=== PATIENT | female | born 1995 | race American Indian/Alaskan Native ===

== ENCOUNTER 2019-06-10 04:00 | Outpatient (CLI) | payer SELFPAY ==
[2019-06-10 05:54] VITALS: BP 114/66
== END 2019-06-10 05:45 | disposition home or self-care (01) ==
LOC: TRG 04:00
PROVIDERS: ATTEND Obstetrics & Gynecology
DX: O47.1 False labor at or after 37 completed weeks of gestation (principal); Z3A.39 39 weeks gestation of pregnancy
CPT/HCPCS: 59025; Q0177

== ENCOUNTER 2021-01-06 21:51 | Outpatient (CLI) | payer MEDICAID, OTHER ==
[2021-01-06 23:58] VITALS: BP 123/73
[2021-01-07] MEDS ORDERED: LACTATED RINGERS 1,000 ML IV ONE (00:10)
[2021-01-07 00:29] LABS: Bilirubin,Urine NEG (Negative); Blood,Urine NEG (Negative); Color,Urine Yellow (Yellow); Mucus,Urine 3+ /HPF
[2021-01-07] MEDS ORDERED: ceFAZolin 1 GM VIAL IM ONE (00:53)
[2021-01-07] MEDS ORDERED: LIDOCAINE MPF (2%) 20 MG/1 ML VIAL 5 ML ONE (01:03)
[2021-01-07] MEDS ORDERED: LIDOCAINE MPF (2%) 20 MG/1 ML VIAL 5 ML INFILTRATI ONE (01:15)
== END 2021-01-07 01:10 | disposition home or self-care (01) ==
LOC: EDSTATUS 23:31 → TRG 23:50 → APU 23:51 → TRG 01-07 01:10
PROVIDERS: ATTEND Obstetrics & Gynecology
DX: O26.893 Other specified pregnancy related conditions, third trimester (principal); R10.9 Unspecified abdominal pain; Z87.891 Personal history of nicotine dependence; Z3A.34 34 weeks gestation of pregnancy
CPT/HCPCS: 59025; 81001; 96372; J0690

== ENCOUNTER 2021-01-31 14:30 | Outpatient (CLI) | payer MEDICAID, OTHER ==
[2021-01-31] MEDS ORDERED: LACTATED RINGERS 1,000 ML IV ONE (15:03)
[2021-01-31 15:48] VITALS: BP 115/74
[2021-01-31 20:33] LABS: Bilirubin,Urine Negative (Negative); Color,Urine Yellow (Yellow)
[2021-01-31 20:34] LABS: Blood,Urine Negative (Negative); Urobilinogen,Urine < 2.0 mg/dL (<2.0)
== END 2021-01-31 17:36 | disposition home or self-care (01) ==
LOC: TRG 14:30 → APU 14:32 → TRG 17:36
PROVIDERS: ATTEND Obstetrics & Gynecology
DX: Z34.93 Encounter for supervision of normal pregnancy, unspecified, third trimester (principal); Z3A.37 37 weeks gestation of pregnancy
CPT/HCPCS: 59025; 81001

== ENCOUNTER 2021-02-12 17:02 | Inpatient (IN) | payer MEDICAID ==
[2021-02-12] MEDS ORDERED: LACTATED RINGERS 1,000 ML IV SCH ×2 (18:15→19:15)
[2021-02-12 18:54] LABS: Basophils % (Auto) 0.3 % (0.0-1.8); Eosinophils % (Auto) 0.2 % (0.0-4.3); Hematocrit 29.6 % (30.3-42.9); Hemoglobin 9.9 gm/dl (10.1-14.3); Mean Corpuscular HGB Conc 33 % (30-34); Mean Corpuscular Volume 81 fl (79-97); Monocytes # (Auto) 0.9 K/mm3 (0.0-0.8); Monocytes % (Auto) 12.2 % (0.0-7.3); Platelet Count 251 K/mm3 (140-440); Red Blood Count 3.66 M/mm3 (3.65-5.03); Red Cell Distribution Width 14.6 % (13.2-15.2)
[2021-02-12] MEDS ORDERED: fentaNYL 100 MCG/2 ML INJ IV ONE (19:00)
[2021-02-12] MEDS ORDERED: LOPERAMIDE 2 MG CAP PO PRN (19:06)
[2021-02-12] MEDS ORDERED: NALOXONE 0.4 MG/1 ML INJ IV PRN (19:06)
[2021-02-12] MEDS ORDERED: ONDANSETRON 4 MG/2 ML INJ IV PRN ×2 (19:06→19:20)
[2021-02-12] MEDS ORDERED: ePHEDrine SULFATE 50 MG/1 ML INJ IV PRN ×2 (19:06→19:20)
[2021-02-12] MEDS ORDERED: CARBOPROST TROMETHAMINE 250 MCG/1 ML INJ IM PRN (19:06)
[2021-02-12] MEDS ORDERED: TERBUTALINE 1 MG/1 ML INJ SUB-Q PRN (19:06)
[2021-02-12] MEDS ORDERED: OXYTOCIN 10 UNIT/1 ML INJ IM PRN (19:06)
[2021-02-12] MEDS ORDERED: BUTORPHANOL 2 MG/1 ML INJ IV PRN (19:06)
[2021-02-12] MEDS ORDERED: ACETAMINOPHEN 325 MG TAB PO PRN (19:06)
[2021-02-12] MEDS ORDERED: LIDOCAINE (2%) 20 MG/1 ML VIAL 20 ML MDV INFILTRATI ONE (19:06)
[2021-02-12] MEDS ORDERED: miSOPROStol 200 MCG TAB PR PRN (19:06)
[2021-02-12] MEDS ORDERED: METHYLERGONOVINE MALEATE 0.2 MG/ML VIAL IM PRN (19:06)
[2021-02-12] MEDS ORDERED: fentaNYL 100 MCG/2 ML INJ IV PRN (19:06)
[2021-02-12] MEDS ORDERED: MINERAL OIL 30 ML ORAL LIQD PO PRN (19:06)
[2021-02-12] MEDS ORDERED: NalbUPHINE 10 MG/1 ML INJ IV PRN (19:20)
[2021-02-12] MEDS ORDERED: LACTATED RINGERS 250 ML IV SOLN IV ONE (19:20)
[2021-02-12] MEDS ORDERED: diphenhydrAMINE 50 MG/ML VIAL IV PRN (19:20)
[2021-02-12] MEDS ORDERED: NALOXONE 2 MG/2 ML INJ IV PRN (19:20)
[2021-02-12 19:38] LABS: Uric Acid 3.8 mg/dL (3.5-7.6)
--- NOTE | 2021-02-12 19:44 | History and Physical Report ---
History of Present Illness Date of examination: 02/12/21 Chief complaint: contractions History of present illness: Pt is a 25 year old female MARRY 02/15/21 at 39w4d who presents with re gular painful contractions, advanced cervical dilation of 6 cm, and rupture of membranes. She has had limited care at [facility] since 35 weeks (4 visits) complicated by third trimester entry to care, genital herpes and h/o PIH in prior . She is GBS negative. 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 Social history: no significant social history - Obstetrical History Expected Date of Delivery: 02/15/21 Actual Gestation: 39 Week(s) 4 Day(s) : 3 Para: 2 Hx # Term Pregnancies: 2 Number of Pregnancies: 0 Spontaneous Abortions: 0 Induced : 0 Number of Living Children: 2 Medications and Allergies Allergies Allergy/AdvReac Type Severity Reaction Status Date / Time No Known Allergies Allergy Verified 12/13/13 04:17 Home Medications Medication Instructions Recorded Confirmed Last Taken Type No Known Home Medications [No 02/12/21 02/12/21 Unknown History Reported Home Medications] Active Meds: Active Medications Acetaminophen (Acetaminophen 325 Mg Tab) 650 mg PO Q4H PRN PRN Reason: Pain, Mild (1-3) Butorphanol Tartrate (Butorphanol 2 Mg/1 Ml Inj) 1 mg IV Q2H PRN PRN Reason: Pain, Moderate(4-6) LABOR PAIN Carboprost Tromethamine (Carboprost Tromethamine 250 Mcg/1 Ml Inj) 250 mcg IM ONCE PRN PRN Reason: Uterine Bleeding Diphenhydramine HCl (Diphenhydramine 50 Mg/Ml Vial) 12.5 mg IV Q2H PRN PRN Reason: Itching Ephedrine Sulfate (Ephedrine Sulfate 50 Mg/1 Ml Inj) 10 mg IV Q2M PRN PRN Reason: Hypotension Fentanyl (Fentanyl 100 Mcg/2 Ml Inj) 100 mcg IV Q2H PRN PRN Reason: Pain,Severe (7-10) LABOR PAIN Lactated Ringer's (Lactated Ringers) 1,000 mls @ 125 mls/hr IV DIRECT PAWEL Last Admin: 02/12/21 18:11 Dose: 125 mls/hr Documented by: Oxytocin/Sodium Chloride (Pitocin/Ns 30 Unit/500ml) 30 units in 500 mls @ 2 mls/hr IV TITR PAWEL; Protocol Lactated Ringer's (Lactated Ringers) 1,000 mls @ 125 mls/hr IV DIRECT PAWEL Oxytocin/Sodium Chloride (Pitocin/Ns 30 Unit/500ml) 30 units in 500 mls @ 40 mls/hr IV TITR PAWEL; Protocol Fentanyl/Bupivacaine/Sodium Chlor (Fentanyl-Bupiv 2 Mcg/Ml-0.125%) 200 mcg in 100 mls @ 12 mls/hr EPIDURAL TITR PAWEL; Protocol Loperamide HCl (Loperamide 2 Mg Cap) 2 mg PO ONCE PRN PRN Reason: give with Hemabate Methylergonovine Maleate (Methylergonovine Maleate 0.2 Mg/Ml Vial) 0.2 mg IM ONCE PRN PRN Reason: Uterine Bleeding Mineral Oil (Mineral Oil 30 Ml Oral Liqd) 30 ml PO QHS PRN PRN Reason: Constipation Misoprostol (Misoprostol 200 Mcg Tab) 800 mcg MO ONCE PRN PRN Reason: Uterine Bleeding Nalbuphine HCl (Nalbuphine 10 Mg/1 Ml Inj) 2.5 mg IV Q2H PRN PRN Reason: Itching Naloxone HCl (Naloxone 0.4 Mg/1 Ml Inj) 0.1 mg IV Q2MIN PRN PRN Reason: Res Rate </= 8 or 02 SAT < 92% Ondansetron HCl (Ondansetron 4 Mg/2 Ml Inj) 4 mg IV Q8H PRN PRN Reason: Nausea And Vomiting Oxytocin (Oxytocin 10 Unit/1 Ml Inj) 10 unit IM ONCE PRN PRN Reason: Uterine Bleeding Terbutaline Sulfate (Terbutaline 1 Mg/1 Ml Inj) 0.25 mg SUB-Q ONCE PRN PRN Reason: Hyperstimulation/Hypertonicity Review of Systems All systems: negative - Vital Signs Vital signs: Vital Signs Pulse Pulse Ox 91 H 98 02/12/21 18:07 02/12/21 18:07 Temp Pulse Resp BP Pulse Ox 98.7 F 80 12 129/84 99 02/12/21 18:20 02/12/21 19:37 02/12/21 19:18 02/12/21 19:18 02/12/21 19:37 - Physical Exam Breasts: Positive: deferred Abdomen: Positive: soft (gravid ) Uterus: Positive: enlarged (gravid ) - Obstetrical FHR: auscultation normal Uterine Contraction Monitor Mode: External Cervical Dilatation: 6 (per RN ) Uterine Contraction Pattern: Regular Uterine Tone Measurement Phase: Resting Uterine Contraction Intensity: Moderate Results Result Diagrams: 02/12/21 18:40 Abnormal lab results 02/12/21 Range/Units 18:40 Hgb 9.9 L (10.1-14.3) gm/dl Hct 29.6 L (30.3-42.9) % MCH 27 L (28-32) pg [place] % (Auto) 12.2 H (0.0-7.3) % [place] # (Auto) 0.9 H (0.0-0.8) K/mm3 All other labs normal. Assessment and Plan A: IUP at 39w4d Active Labor Insufficient Care Genital Herpes without lesion or prodrome GBS Negative P: Admit to labor and delivery Routine intrapartum care Monitor maternal and status
--- NOTE | 2021-02-12 19:50 | Anesthesia Consultation ---
Anesthesia Consult and Med Hx Date of service: 02/12/21 - Airway Anesthetic Teeth Evaluation: Good ROM Head & Neck: Adequate Mental/Hyoid Distance: Adequate Mallampati Class: Class II Intubation Access Assessment: Probably Good - Pulmonary Exam CTA: Yes - Cardiac Exam Cardiac Exam: RRR - Pre-Operative Health Status ASA Pre-Surgery Classification: ASA2 Proposed Anesthetic Plan: Epidural - Pulmonary Hx Smoking: No Hx Asthma: No COPD: No Hx Pneumonia: No Hx Sleep Apnea: No - Cardiovascular System Hx Hypertension: Yes (2019) Hx Heart Attack/AMI: No Hx Angina: No - Central Nervous System Hx Seizures: No Hx Psychiatric Problems: Yes (hospitalized 04/21-05/23 suicidal ideation) - Endocrine Hx Renal Disease: No Hx End Stage Renal Disease: No Hx Liver Disease: No Hx Insulin Dependent Diabetes: No Hx Non-Insulin Dependent Diabetes: No Hx Hypothyroidism: No Hx Hyperthyroidism: No - Hematic Hx Anemia: Yes Hx Sickle Cell Disease: No - Other Systems Hx Alcohol Use: No
--- NOTE | 2021-02-12 19:51 | Progress Note ---
Labor Epidural - Labor Epidural Start Time: 19:30 Stop Time: 19:42 Performed by:: BHAKTI CARROLL Procedure: Patient is requesting epidural for labor and pain. H&P, labs were reviewed. Patient IDed, H&P reviewed, all questions and concerns were answered, and consent was signed. Timeout was performed at bedside. Patient in sitting position. Sterile prep and drape was performed. 3ml of 1% lidocaine skin wheal at L[3]- L [4]. 18-gauge Pixtr epidural needle was advanced to loss of resistance with air technique 7cm. Negative CSF negative blood. Epidural catheter advanced to [12] centimeters. [negative] Aspiration [negative] test dose. Sterile dressing applied. Patient tolerated procedure.
[2021-02-12] MEDS ORDERED: OXYTOCIN DRIP 30 UNITS/500 ML BAG IV SCH ×2 (20:00)
[2021-02-12] MEDS ORDERED: fentaNYL-BUPIV 2 MCG/ML-0.125% 200 MCG/100 ML BAG EPIDURAL SCH (20:00)
[2021-02-12 20:03] LABS: Alanine Aminotransferase 12 units/L (7-56); Albumin 3.2 g/dL (3.9-5); Blood Urea Nitrogen 6 mg/dL (7-17); Calcium 8.5 mg/dL (8.4-10.2); Hemolysis Index 18
[2021-02-12 20:04] LABS: BUN/Creatinine Ratio 12
--- NOTE | 2021-02-12 22:53 | Procedure Note ---
OB Delivery Note - Delivery Date of Delivery: 02/12/21 Surgeon: KRYSTYNA MORGAN Estimated blood loss: 300cc - Vaginal Delivery presentation: vertex Delivery position: OA Intrapartum events: PROM->1hr before delivery, decreased FHT variability, mult.variable deceleratio Delivery induction: none Delivery augmentation: rupture of membranes Delivery monitor: external FHT, external uterine Route of delivery: Delivery placenta: spontaneous Episiotomy: none Delivery laceration: none Anesthesia: epidural - Infant A at 1 minute: 8 at 5 minutes: 9 Infant Gender: Male (3370g (7lb 7oz) @ 2219 pm)
[2021-02-13] MEDS ORDERED: diphenhydrAMINE 25 MG CAP PO PRN (01:15)
[2021-02-13] MEDS ORDERED: WITCH HAZEL/ GLYCERIN PAD TP PRN (01:15)
[2021-02-13] MEDS ORDERED: ONDANSETRON 4 MG/2 ML INJ IV PRN (01:15)
[2021-02-13] MEDS ORDERED: LANOLIN/ZINC/DIMETHICONE (LANSINOH) 7 GM TP PRN ×2 (01:15)
[2021-02-13] MEDS ORDERED: PROMETHAZINE 25 MG RECT SUPP PR PRN (01:15)
[2021-02-13] MEDS ORDERED: OXYTOCIN DRIP 30 UNITS/500 ML BAG IV SCH (01:15)
[2021-02-13] MEDS ORDERED: MAGNESIUM HYDROXIDE (MOM) ORAL LIQD UDC PO PRN (01:15)
[2021-02-13] MEDS ORDERED: PROMETHAZINE 25 MG TAB PO PRN (01:15)
[2021-02-13] MEDS ORDERED: BENZOCAINE/MENTHOL 20/0.5% TOP SPRAY 56 GM TP PRN (01:15)
--- NOTE | 2021-02-13 08:13 | Progress Note ---
Assessment and Plan - Patient Problems (1) Status post normal vaginal delivery Current Visit: Yes Status: Acute Plan to address problem: Continue routine PP orders Anticipate d/c home tomorrow if stable (2) Anemia Current Visit: Yes Status: Acute Qualifiers: Anemia type: iron deficiency Plan to address problem: Asymptomatic Increase iron rich foods into diet Continue daily oral iron supplementation as directed Subjective - Subjective Date of service: 02/13/21 Principal diagnosis: S/P ; PPD#1; Anemia Interval history: Pt is a 25 year old female MARRY 02/15/21 at 39w4d who presents with re gular painful contractions, advanced cervical dilation of 6 cm, and rupture of membranes. She has had limited care at [facility] since 35 weeks (4 visits) complicated by third trimester entry to care, genital herpes and h/o PIH in prior . She is GBS negative. of viable male . Patient reports: appetite normal, voiding normally, pain well controlled, flatus, ambulating normally : doing well, bottle feeding (and ) Objective - Vital Signs Latest vital signs: Vital Signs Temp Pulse Resp BP BP BP Pulse Ox 02/13/21 05:40 97.9 F 80 18 111/76 97 02/13/21 02:36 02/13/21 02:15 98.6 F 83 21 120/70 97 02/13/21 01:12 92 H 97 02/13/21 01:07 92 H 97 02/13/21 01:02 82 98 02/13/21 01:01 91 H 94 02/13/21 00:57 87 97 02/13/21 00:52 95 H 98 02/13/21 00:47 89 100 02/13/21 00:43 91 H 94 02/13/21 00:42 100 H 98 02/13/21 00:37 81 99 02/13/21 00:32 92 H 99 02/13/21 00:27 95 H 99 02/13/21 00:22 85 99 02/13/21 00:17 92 H 99 02/13/21 00:12 98 H 100 02/13/21 00:07 77 100 02/13/21 00:02 94 H 98 02/12/21 23:57 92 H 97 02/12/21 23:54 104 H 83 L 02/12/21 23:52 76 98 02/12/21 23:47 103 H 99 02/12/21 23:42 88 100 02/12/21 23:37 83 100 02/12/21 23:32 91 H 100 02/12/21 23:27 99 H 100 02/12/21 23:26 58 L 90 02/12/21 23:22 59 L 95 02/12/21 23:17 87 100 02/12/21 23:12 91 H 99 02/12/21 23:07 105 H 69 L 02/12/21 23:04 106 H 93 02/12/21 23:02 93 H 97 02/12/21 22:59 97 H 92 02/12/21 22:57 100 H 98 02/12/21 22:52 82 95 02/12/21 22:50 98.9 F 92 H 124/74 77 L 02/12/21 22:47 99 H 95 02/12/21 22:44 82 L 02/12/21 22:42 94 H 83 L 02/12/21 22:38 46 L 89 02/12/21 22:37 44 L 97 02/12/21 22:33 96 H 92 02/12/21 22:32 88 100 02/12/21 22:27 91 H 85 02/12/21 22:24 103 H 83 L 02/12/21 22:22 105 H 89 02/12/21 22:17 92 H 100 02/12/21 22:12 86 106/67 95 02/12/21 22:11 86 87 02/12/21 22:07 88 112/63 100 02/12/21 22:02 88 100 02/12/21 22:01 179 H 153/76 02/12/21 21:59 102 H 86 02/12/21 21:57 106 H 100 02/12/21 21:53 70 87 02/12/21 21:52 95 H 99 02/12/21 21:48 135 H 91 02/12/21 21:47 134 H 95 02/12/21 21:43 86 112/55 02/12/21 21:42 87 93 02/12/21 21:37 87 100 02/12/21 21:32 81 135/56 100 02/12/21 21:28 71 79 L 02/12/21 21:27 73 100 02/12/21 21:23 72 81 L 02/12/21 21:22 70 100 02/12/21 21:21 89 122/60 02/12/21 21:17 81 100 02/12/21 21:12 75 90 02/12/21 21:10 97 H 87 02/12/21 21:07 89 100 02/12/21 21:04 89 83 L 02/12/21 21:02 79 100 02/12/21 21:01 74 124/69 02/12/21 20:59 75 94 02/12/21 20:57 77 100 02/12/21 20:54 98.2 F 74 88 02/12/21 20:52 78 119/71 100 02/12/21 20:47 81 100 02/12/21 20:45 63 86 02/12/21 20:42 77 100 02/12/21 20:37 75 100 02/12/21 20:32 74 100 02/12/21 20:31 77 103/64 02/12/21 20:27 72 100 02/12/21 20:22 81 100 02/12/21 20:21 76 131/79 02/12/21 20:17 86 99 02/12/21 20:13 80 93 02/12/21 20:12 77 98 02/12/21 20:11 81 116/67 02/12/21 20:07 79 100 02/12/21 20:02 75 116/71 98 02/12/21 19:57 85 98 02/12/21 19:52 85 100 02/12/21 19:47 76 100 02/12/21 19:46 81 126/78 02/12/21 19:42 94 H 99 02/12/21 19:37 80 99 02/12/21 19:32 89 100 02/12/21 19:27 102 H 99 02/12/21 19:22 79 98 02/12/21 19:20 92 H 89 02/12/21 19:18 76 12 129/84 100 02/12/21 19:17 82 100 02/12/21 19:13 93 H 91 02/12/21 19:12 90 92 02/12/21 19:07 89 100 02/12/21 19:03 84 129/84 89 02/12/21 19:02 82 98 02/12/21 18:57 85 100 10/12/21 18:52 76 99 02/12/21 18:47 97 H 98 02/12/21 18:42 98 H 98 02/12/21 18:37 83 98 02/12/21 18:32 88 98 02/12/21 18:27 91 H 100 02/12/21 18:22 71 100 02/12/21 18:20 98.7 F 20 02/12/21 18:17 92 H 99 02/12/21 18:12 94 H 99 02/12/21 18:09 92 H 125/81 02/12/21 18:07 91 H 98 Pulse Ox 02/13/21 05:40 02/13/21 02:36 97 02/13/21 02:15 02/13/21 01:12 02/13/21 01:07 02/13/21 01:02 02/13/21 01:01 02/13/21 00:57 02/13/21 00:52 02/13/21 00:47 02/13/21 00:43 02/13/21 00:42 02/13/21 00:37 02/13/21 00:32 02/13/21 00:27 02/13/21 00:22 02/13/21 00:17 02/13/21 00:12 02/13/21 00:07 02/13/21 00:02 02/12/21 23:57 02/12/21 23:54 02/12/21 23:52 02/12/21 23:47 02/12/21 23:42 02/12/21 23:37 02/12/21 23:32 02/12/21 23:27 02/12/21 23:26 02/12/21 23:22 02/12/21 23:17 02/12/21 23:12 02/12/21 23:07 02/12/21 23:04 02/12/21 23:02 02/12/21 22:59 02/12/21 22:57 02/12/21 22:52 02/12/21 22:50 02/12/21 22:47 02/12/21 22:44 02/12/21 22:42 02/12/21 22:38 02/12/21 22:37 02/12/21 22:33 02/12/21 22:32 02/12/21 22:27 02/12/21 22:24 02/12/21 22:22 02/12/21 22:17 02/12/21 22:12 02/12/21 22:11 02/12/21 22:07 02/12/21 22:02 02/12/21 22:01 02/12/21 21:59 02/12/21 21:57 02/12/21 21:53 02/12/21 21:52 02/12/21 21:48 02/12/21 21:47 02/12/21 21:43 02/12/21 21:42 02/12/21 21:37 02/12/21 21:32 02/12/21 21:28 02/12/21 21:27 02/12/21 21:23 02/12/21 21:22 02/12/21 21:21 02/12/21 21:17 02/12/21 21:12 02/12/21 21:10 02/12/21 21:07 02/12/21 21:04 02/12/21 21:02 02/12/21 21:01 02/12/21 20:59 02/12/21 20:57 02/12/21 20:54 02/12/21 20:52 02/12/21 20:47 02/12/21 20:45 02/12/21 20:42 02/12/21 20:37 02/12/21 20:32 02/12/21 20:31 02/12/21 20:27 02/12/21 20:22 02/12/21 20:21 02/12/21 20:17 02/12/21 20:13 02/12/21 20:12 02/12/21 20:11 02/12/21 20:07 02/12/21 20:02 02/12/21 19:57 02/12/21 19:52 02/12/21 19:47 02/12/21 19:46 02/12/21 19:42 02/12/21 19:37 02/12/21 19:32 02/12/21 19:27 02/12/21 19:22 02/12/21 19:20 02/12/21 19:18 100 02/12/21 19:17 02/12/21 19:13 02/12/21 19:12 02/12/21 19:07 02/12/21 19:03 02/12/21 19:02 02/12/21 18:57 02/12/21 18:52 02/12/21 18:47 02/12/21 18:42 02/12/21 18:37 02/12/21 18:32 02/12/21 18:27 02/12/21 18:22 02/12/21 18:20 02/12/21 18:17 02/12/21 18:12 02/12/21 18:09 02/12/21 18:07 Intake and Output 02/12/21 02/13/21 02/13/21 23:59 07:59 15:59 Intake Total 480 Balance 480 Intake: Oral 360 Intake, Free Water 120 Other: Total, Intake Amount 360 # Voids Void 1 Weight 83.007 kg Estimated Blood Loss 300 - Exam Breasts: Present: normal Cardiovascular: Present: Regular rate Lungs: Present: Normal air movement Abdomen: Present: soft, tenderness Uterus: Present: firm, fundal height below umbilicus (U-2) Extremities: Present: normal Deep Tendon Reflex Grade: Normal +2 - Labs Labs: Abnormal lab results 02/12/21 02/12/21 Range/Units 18:40 18:40 Hgb 9.9 L (10.1-14.3) gm/dl Hct 29.6 L (30.3-42.9) % MCH 27 L (28-32) pg [place] % (Auto) 12.2 H (0.0-7.3) % [place] # (Auto) 0.9 H (0.0-0.8) K/mm3 Carbon Dioxide 20 L (22-30) mmol/L BUN 6 L (7-17) mg/dL Creatinine 0.5 L (0.6-1.2) mg/dL Alkaline Phosphatase 179 H (35-129) units/L Albumin 3.2 L (3.9-5) g/dL
[2021-02-13] MEDS: HYDROcodone/ACETAMINOPHEN 5-325 MG TAB PO PRN ×2 (08:42→15:17)
[2021-02-13] MEDS: FERROUS SULFATE 325 MG TAB PO SCH ×2 (08:42→23:54)
[2021-02-13 11:10] LABS: Hematocrit 26.8 % (30.3-42.9); Hemoglobin 9.1 gm/dl (10.1-14.3)
--- NOTE | 2021-02-13 12:30 | Post Anesthesia Evaluation ---
- Post Anesthesia Evaluation Patient Participated: Yes Airway Patent: Yes Stable Respiratory Function: Yes Nausea/Vomiting: No Temp > 96.8F: Yes Pain Manageable: Yes Adequeate Hydration: Yes Anesthesia Complications: No Block Receding Appropriately: Yes Patient on Ventilator: No
[2021-02-13] MEDS ORDERED: MEASLES, MUMPS & RUBELLA 12,500 UNIT/0.5 ML VACCINE SUB-Q ONE (22:54)
[2021-02-13] MEDS: IBUPROFEN 600 MG TAB PO SCH (23:55)
[2021-02-14 03:14] LABS: Bilirubin,Urine NEG (Negative); Blood,Urine SM (Negative); Color,Urine Straw (Yellow); Protein,Urine <15 mg/dL mg/dL (Negative)
[2021-02-14] MEDS: IBUPROFEN 600 MG TAB PO SCH ×2 (06:00→09:57)
[2021-02-14] MEDS ORDERED: TETANUS,DIPH,PERTUSS(ACELL) VACCINE 0.5 ML SYRINGE IM ONE (06:00)
--- NOTE | 2021-02-14 08:56 | Discharge Summary ---
Providers - Providers Date of Admission: 02/12/21 19:09 Date of discharge: 02/14/21 Attending physician: KRYSTYNA MORGAN 02/13/21 01:15 Consult to Surgical Instruments Inspector [CONS] Routine Reason For Exam: assistance with , SNS Primary care physician: KRYSTYNA MORGAN Hospitalization Reason for admission: rupture of membranes Delivery: Episiotomy: none Laceration: none Other procedures: none complications: none Discharge diagnosis: IUP at term delivered [place] baby: male Hospital course: Pt is a 25 year old female MARRY 02/15/21 at 39w4d who presents with regular painful contractions, advanced cervical dilation of 6 cm, and rupture of membranes. She has had limited care at [facility] since 35 weeks (4 visits) complicated by third trimester entry to care, genital herpes and h/o PIH in prior . She is GBS negative. of viable male . Condition at discharge: Good Disposition: 01 HOME / SELF CARE / HOMELESS - Discharge Diagnoses (1) Status post normal vaginal delivery Status: Acute (2) Anemia Status: Acute Qualifiers: Anemia type: iron deficiency Comment: Asymptomatic Increase iron rich foods into diet Plan - Discharge Medications Prescriptions: Ibuprofen [Motrin 600 MG tab] 600 mg PO Q8H 7 Days #21 tablet - Provider Discharge Summary Activity: routine, no sex for 6 weeks, no heavy lifting 4 weeks, no strenuous exercise Diet: other (Iron rich diet) Instructions: routine Additional instructions: [] Smoking cessation referral if applicable(refer to patient education folder for contact #) [] Refer to [facility]'s [facility] Booklet Call your doctor immediately for: * Fever > 100.5 * Heavy vaginal bleeding ( >1 pad per hour) * Severe persistent headache * Shortness of breath * Reddened, hot, painful area to leg or breast - Follow up plan Follow up: KRYSTYNA MORGAN MD [Primary Care Provider] - 6 Weeks Forms: [facility] Discharge Summary
[2021-02-14] MEDS: FERROUS SULFATE 325 MG TAB PO SCH (09:56)
[2021-02-14 13:42] VITALS: BP 126/73
== END 2021-02-14 13:50 | disposition home or self-care (01) | DRG 774 ==
LOC: TRG 17:02 → APU 17:03 → LD 17:10 → TRG 19:09 → LD 19:09 → OB 02-13 01:12
PROVIDERS: ADMIT Obstetrics & Gynecology; ATTEND Obstetrics & Gynecology
PROC: 10E0XZZ Delivery of Products of Conception, External Approach (ICD-10-PCS; principal; 2021-02-12)
PROC: 10907ZC Drainage of Amniotic Fluid, Therapeutic from Products of Conception, Via Natural or Artificial Opening (ICD-10-PCS; 2021-02-12)
PROC: 3E0R3BZ Introduction of Anesthetic Agent into Spinal Canal, Percutaneous Approach (ICD-10-PCS; 2021-02-12)
PROC: 00HU33Z Insertion of Infusion Device into Spinal Canal, Percutaneous Approach (ICD-10-PCS; 2021-02-12)
PROC: 3E0234Z Introduction of Serum, Toxoid and Vaccine into Muscle, Percutaneous Approach (ICD-10-PCS; 2021-02-13)
DX: O76 Abnormality in fetal heart rate and rhythm complicating labor and delivery (principal); O98.32 Other infections with a predominantly sexual mode of transmission complicating childbirth; O42.02 Full-term premature rupture of membranes, onset of labor within 24 hours of rupture; Z37.0 Single live birth; Z3A.39 39 weeks gestation of pregnancy; D50.8 Other iron deficiency anemias; Z23 Encounter for immunization; A60.00 Herpesviral infection of urogenital system, unspecified; O90.81 Anemia of the puerperium
CPT/HCPCS: 36415; 80053; 81001; 83615; 84550; 85014; 85018; 85025; 86592; 86850; 86900; 86901; G0378; J3010; J7120; U0003

== ENCOUNTER 2022-01-29 20:43 | Emergency (ER) | payer MEDICAID ==
[2022-01-30 00:41] LABS: Basophils % (Auto) 0.5 % (0.0-1.8); Eosinophils # (Auto) 0.1 K/mm3 (0.0-0.4); Eosinophils % (Auto) 0.7 % (0.0-4.3); Hematocrit 34.6 % (30.3-42.9); Hemoglobin 11.5 gm/dl (10.1-14.3); Lymphocytes # (Auto) 2.9 K/mm3 (1.2-5.4); Mean Corpuscular HGB Conc 33 % (30-34); Mean Corpuscular Volume 81 fl (79-97); Monocytes # (Auto) 0.6 K/mm3 (0.0-0.8); Monocytes % (Auto) 7.4 % (0.0-7.3); Platelet Count 250 K/mm3 (140-440); Red Blood Count 4.26 M/mm3 (3.65-5.03); Red Cell Distribution Width 15.3 % (13.2-15.2)
[2022-01-30 00:46] LABS: Blood Urea Nitrogen 9 mg/dL (7-17); Calcium 9.3 mg/dL (8.4-10.2); Hemolysis Index 3
[2022-01-30 01:05] LABS: BUN/Creatinine Ratio 13
[2022-01-30 01:31] LABS: Bilirubin,Urine NEG (Negative); Blood,Urine NEG (Negative); Color,Urine Amber (Yellow)
[2022-01-30 01:33] LABS: Mucus,Urine 3+ /HPF
[2022-01-30 01:39] LABS: Amphetamine Screen,Urine PRESUMPTIVE POSITIVE; Benzodiazepines Screen,Urine PRESUMPTIVE NEGATIVE; Cannabinoid Screen,Urine PRESUMPTIVE POSITIVE; Cocaine Screen,Urine PRESUMPTIVE NEGATIVE; Methadone Screen,Urine PRESUMPTIVE NEGATIVE; Opiate Screen,Urine PRESUMPTIVE NEGATIVE
--- NOTE | 2022-01-30 02:43 | Emergency Department Report ---
ED Psych HPI - General Chief Complaint: Psych Stated Complaint: POST DEPRESSION/1013 Time Seen by Provider: 01/29/22 21:28 Source: patient Mode of arrival: Ambulatory Limitations: No Limitations - History of Present Illness Initial Comments: SI/HI. Patient has depression and has not been on her medicationsin a year. MD Complaint: suicidal ideation, feels depressed -: unknown Associated Psychiatric Symptoms: depression, suicidal ideation, homicidal ideation History of same: Yes Quality: constant Context: not taking psychiatric Associated Symptoms: denies: denies other symptoms, confusion, headache - Related Data Previous Rx's Medication Instructions Recorded Last Taken Type Ibuprofen [Motrin 600 MG tab] 600 mg PO Q8H 7 Days #21 tablet 02/14/21 Unknown Rx Allergies Allergy/AdvReac Type Severity Reaction Status Date / Time No Known Allergies Allergy Verified 12/13/13 04:17 ED Review of Systems ROS: Stated complaint: POST DEPRESSION/1013 Other details as noted in HPI Constitutional: denies: chills, fever Eyes: denies: eye pain, eye discharge, vision change ENT: denies: ear pain, throat pain Respiratory: denies: cough, shortness of breath, wheezing Cardiovascular: denies: chest pain, palpitations Endocrine: no symptoms reported Gastrointestinal: denies: abdominal pain, nausea, diarrhea Genitourinary: denies: urgency, dysuria, discharge Musculoskeletal: denies: back pain, joint swelling, arthralgia Skin: denies: rash, lesions Neurological: denies: headache, weakness, paresthesias Psychiatric: denies: anxiety, depression Hematological/Lymphatic: denies: easy bleeding, easy bruising ED Past Medical Hx - Past Medical History Previous Medical History?: Yes Hx Hypertension: Yes (2013, 2019) Hx Heart Attack/AMI: No Hx Congestive Heart Failure: No Hx Diabetes: No Hx Deep Vein Thrombosis: No Hx Liver Disease: No Hx Renal Disease: No Hx Sickle Cell Disease: No Hx Seizures: No Hx Psychiatric Treatment: (Bipolar, depression,PPD) Hx Asthma: No Hx COPD: No Hx HIV: No - Social History Smoking Status: Never Smoker Substance Use Type: None - Medications Home Medications: Home Medications Medication Instructions Recorded Confirmed Last Taken Type Ibuprofen [Motrin 600 MG tab] 600 mg PO Q8H 7 Days #21 tablet 02/14/21 Unknown Rx ED Physical Exam - General Limitations: No Limitations General appearance: alert, in no apparent distress - Head Head exam: Present: atraumatic, normocephalic - Eye Eye exam: Present: normal appearance - ENT ENT exam: Present: mucous membranes moist - Neck Neck exam: Present: normal inspection - Respiratory Respiratory exam: Present: normal lung sounds bilaterally. Absent: respiratory distress - Cardiovascular Cardiovascular Exam: Present: regular rate, normal rhythm. Absent: systolic murmur, diastolic murmur, rubs, gallop - GI/Abdominal GI/Abdominal exam: Present: soft, normal bowel sounds - Extremities Exam Extremities exam: Present: normal inspection - Back Exam Back exam: Present: normal inspection - Neurological Exam Neurological exam: Present: alert, oriented X3 - Psychiatric Psychiatric exam: Present: depressed, anxious, homicidal ideation, suicidal ideation - Skin Skin exam: Present: warm, dry, intact, normal color. Absent: rash ED Course Vital Signs 01/29/22 01/29/22 21:10 21:26 Temperature 98.7 F Pulse Rate 77 Respiratory 16 Rate Blood Pressure 133/98 [Left] O2 Sat by Pulse 97 97 Oximetry ED Medical Decision Making - Lab Data Result diagrams: 01/30/22 00:09 01/30/22 00:09 Critical care attestation.: If time is entered above; I have spent that time in minutes in the direct care of this critically ill patient, excluding procedure time. ED Disposition Clinical Impression: Suicidal ideation Disposition: 30 STILL A PATIENT Is pt being admited?: No Does the pt Need Aspirin: No Condition: Stable Referrals: PRIMARY CARE, [Primary Care Provider] - 3-5 Days
--- NOTE | 2022-01-30 10:21 | Consultation ---
History of Present Illness - Reason for Consult Consult date: 01/30/22 Reason for consult: depression, SI - History of Present Psychiatric Illness The patient was seen today. She is calm, and cooperative but appears down. She says she presented to the ER for suicidal thoughts. The patient denies having a plan. She says she just had a baby and suffers from PPD. The patient says she feels stressed, and not getting the support from her family that she gives to them. She says she has a lot of people living with her and they do nothing to help her. She says she also had a suicide attempt at age 19. She says she feels anxious and very depressed. The patient says she was seeing a therapist but hasn't talked to her since September. She says she was taking zoloft, but hasn't been on it lately. She denies hallucinations of any kind. REVIEW OF SYSTEMS Constitutional: Negative for weight loss ENT: Negative for stridor Respiratory: Negative for cough or hemoptysis All other systems reviewed and are negative MENTAL STATUS EXAMINATION General Appearance and Behavior: Age appropriate, good hygiene, wearing appropriate clothes, good eye contact, calm, cooperative Cooperation: Participating/engaged Psychomotor Behavior: Psychomotor normal Mood: depressed, anxious Affect and affective range: congruent with stated mood Thought Process: goal directed Thought Content: reality oriented Speech: Normal tone and pace Suicidal Ideation: Yes Homicidal Ideation: Denies Hallucinations: Denies Delusions: None elicited Impulse Control: Normal Insight and Judgment: Limited insight and judgment Memory: Normal Attention: Attentive Orientation: Alert, oriented x 3 Assessment and Plan (1) Major Depressive Disorder (2) Generalized Anxiety Disorder Treatment Plan 1013 Zoloft 25mg po daily Vistaril 25mg po BID Trazodone 50mg po qhs Risks, benefits and alternatives of medications discussed with the patient, questions answered and consent obtained from patient. PSYCHOTHERAPY: Supportive psychotherapy provided MEDICAL: Per primary team DELIRIUM PRECAUTIONS: Please re-orient patient frequently, keep lights on during the day, and minimize benzodiazepines and opiates as these medications could worsen patient's confusion. BUSINESS MACHINE OPERATOR: Defer to primary DISPOSITION: recommend acute psychiatric inpatient treatment Will follow. Thank you for the consult. Please contact with any questions and/or concerns. Case staffed with Dr. Keenan Medications and Allergies Allergies Allergy/AdvReac Type Severity Reaction Status Date / Time No Known Allergies Allergy Verified 12/13/13 04:17 Home Medications Medication Instructions Recorded Confirmed Last Taken Type Ibuprofen [Motrin 600 MG tab] 600 mg PO Q8H 7 Days #21 tablet 02/14/21 Unknown Rx Mental Status Exam - Vital signs Last Vital Signs Temp 98.8 F 01/30/22 09:54 Pulse 88 01/30/22 09:54 Resp 18 01/30/22 09:54 BP 125/67 01/30/22 09:54 Pulse Ox 97 01/30/22 09:54 Results Result Diagrams: 01/30/22 00:09 01/30/22 00:09 Abnormal lab results 01/29/22 01/30/22 01/30/22 Range/Units 22:30 00:09 00:09 MCH (28-32) pg RDW (13.2-15.2) % Lymph % (Auto) (13.4-35.0) % [place] % (Auto) (0.0-7.3) % Ur Specific [place] 1.033 H (1.003-1.030) U Epithel Cells (Auto) 17.0 H (0-13.0) /HPF Salicylates < 0.3 L (2.8-20.0) mg/dL Acetaminophen 5.0 L (10.0-30.0) ug/mL 01/30/22 Range/Units 00:09 MCH 27 L (28-32) pg RDW 15.3 H (13.2-15.2) % Lymph % (Auto) 36.0 H (13.4-35.0) % [place] % (Auto) 7.4 H (0.0-7.3) % Ur Specific [place] (1.003-1.030) U Epithel Cells (Auto) (0-13.0) /HPF Salicylates (2.8-20.0) mg/dL Acetaminophen (10.0-30.0) ug/mL All other labs normal.
[2022-01-30] MEDS: SERTRALINE 25 MG TAB PO SCH (16:54)
[2022-01-30] MEDS: hydrOXYzine PAMOATE 25 MG CAP PO SCH (16:54)
[2022-01-30] MEDS ORDERED: traZODone 50 MG TAB PO SCH (22:00)
[2022-01-31 08:45] VITALS: BP 129/94
--- NOTE | 2022-01-31 09:17 | Progress Note ---
Subjective - Reason for Consult Consult date: 01/31/22 Reason for consult: mental health evaluation - Chief Complaint Chief complaint: 01/31: Patient was seen today. Patient was alert, oriented x3, and cooperative throughout the interview. Patient reports passive suicidal ideation the other day but denies any thoughts today. Patient reports interest in seeking outpatient therapy and medication management as both were effective previously. Patent reports journaling, listening to music, and playing games previously was beneficial in mitigating depressive thoughts. Patient reports interest in going back to school. Patient denies HI and AVH at this time. 01/30: The patient was seen today. She is calm, and cooperative but appears down. She says she presented to the ER for suicidal thoughts. The patient denies having a plan. She says she just had a baby and suffers from PPD. The patient says she feels stressed, and not getting the support from her family that she gives to them. She says she has a lot of people living with her and they do nothing to help her. She says she also had a suicide attempt at age 19. She says she feels anxious and very depressed. The patient says she was seeing a therapist but hasn't talked to her since September. She says she was taking zoloft, but hasn't been on it lately. She denies hallucinations of any kind. REVIEW OF SYSTEMS Constitutional: Negative for weight loss ENT: Negative for stridor Respiratory: Negative for cough or hemoptysis All other systems reviewed and are negative MENTAL STATUS EXAMINATION General Appearance and Behavior: Age appropriate, good hygiene, wearing appropriate clothes, good eye contact, calm, cooperative Cooperation: Participating/engaged Psychomotor Behavior: Psychomotor normal Mood: overwhelmed Affect and affective range: congruent with stated mood Thought Process: goal directed Thought Content: reality oriented Speech: Normal tone and pace Suicidal Ideation: Denies Homicidal Ideation: Denies Hallucinations: Denies Delusions: None elicited Impulse Control: Normal Insight and Judgment: Limited insight and judgment Memory: Normal Attention: Attentive Orientation: Alert, oriented x 3 ASSESSMENT (1) Major Depressive Disorder (2) Generalized Anxiety Disorder Treatment Plan Rescind 1013 Amb Orders for: Zoloft 25mg po daily Vistaril 25mg po BID Mirtazapine 15 mg qhs Risks, benefits and alternatives of medications discussed with the patient, questions answered and consent obtained from patient. The patient should be compliant with medications, not to use drugs, and not to drink alcohol. The patient understands that if suicidal ideas, homicidal ideas or any endangering feeling arise, the patient should seek assistance including, but not limited to crisis hotline, and emergency room. PSYCHOTHERAPY: Supportive psychotherapy provided MEDICAL: Per primary team DELIRIUM PRECAUTIONS: Please re-orient patient frequently, keep lights on during the day, and minimize benzodiazepines and opiates as these medications could worsen patient's confusion. SLUDGE CONTROL ATTENDANT: Defer to primary DISPOSITION: Do not recommend acute psychiatric inpatient treatment. Mental health air cargo agent will provide outpatient psychiatric resources. Will sign off. Thank you for the consult. Please contact with any questions and/or concerns. Case staffed with Dr. Keenan Mental Status Exam - Vital signs Last Vital Signs Temp 98.8 F 01/31/22 08:42 Pulse 89 01/31/22 08:42 Resp 16 01/31/22 08:42 BP 129/94 01/31/22 08:42 Pulse Ox 97 01/31/22 08:42
[2022-01-31] MEDS: hydrOXYzine PAMOATE 25 MG CAP PO SCH (10:03)
[2022-01-31] MEDS: SERTRALINE 25 MG TAB PO SCH (10:03)
--- NOTE | 2022-01-31 11:14 | Emergency Department Report ---
Blank Doc - Documentation Documentation: 26-year-old female initially placed on 1013 for suicidal ideation. Patient was evaluated by mental health today. As per mental health note she denied suicidal ideation at this time and has been cleared for discharge on medications. Diagnosis is major depressive disorder/ depression and anxiety. Chart review, vital signs view, and labs reviewed. Patient is medically stable for discharge and has been cleared for psych for outpatient management
== END 2022-01-31 11:57 | disposition home or self-care (01) ==
LOC: ED 20:43 → EEVIPCON 20:43 → ED 01-31 11:57
DX: R45.851 Suicidal ideations (principal); Z20.822 Contact with and (suspected) exposure to COVID-19; I10 Essential (primary) hypertension; F31.9 Bipolar disorder, unspecified; Z79.899 Other long term (current) drug therapy
CPT/HCPCS: 36415; 80307; 81001; 99284; U0003; 80048; 80320; 85025; G0480